=== PATIENT | male | born 1975 | race Caucasian/White ===

== ENCOUNTER 2019-04-18 08:55 | Emergency (ER) | payer OTHER, SELFPAY ==
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
[2019-04-18 08:58] VITALS: BP 122/96; PULSE 111; RESP 16; TEMP 36.7; O2SAT 99; BMI 28.5
[2019-04-18 09:07] VITALS: O2SAT 98
--- NOTE | 2019-04-18 09:13 | XR_ITS ---
WS: [id number] XR chest 1V portable [id number] REASON FOR EXAM: dyspnea/cough FINDINGS: Comparisons were made to September 14, 2015. The heart is normal. The lung dai are well aerated no pneumonia, pleural effusion, pulmonary edema, or mass effect. There is no hilar or apical abnormalities. No pneumothorax. XR/XR chest 1V portable [id number] IMPRESSION: Negative chest for active pathology.
--- NOTE | 2019-04-18 09:13 | ECG_ITS ---
Measurements Intervals [place] Rate: 107 P: 56 MI: 134 QRS: 64 QRSD: 70 T: 63 QT: 306 QTc: 409 SINUS TACHYCARDIA ABNORMAL RHYTHM ECG INTERPRETATION BASED ON A DEFAULT AGE OF 40 YEARS Compared to ECG 09/14/2015 08:34:21 Sinus rhythm no longer present T-wave abnormality no longer present Electronically Signed On 04-18-2019 19:05:09 EMERGENCY ROOM ORDERLY by Eduarda Ruby M.D. [id number] f
[2019-04-18] MEDS: ondansetron 2 mg/ML SDV 2 mL 4 MG IVP (09:21)
[2019-04-18] MEDS: sodium chlor 0.9% + KCl 20 mEq 20 MEQ/1,000 ML BAG 125 MEQ IV (09:21)
[2019-04-18] MEDS: morphine 4 mg/mL SDV 1 mL IVP (09:21)
[2019-04-18 09:25] LABS: Basophils # 0.1 10^3/uL (0.0-0.1); Basophils % 0.9 %; Eosinophils # 0.2 10^3/uL (0.0-0.8); Eosinophils % 2.7 %; Hematocrit 43.8 % (42.0-52.0); Hemoglobin 14.9 g/dL (11.7-16.6); Lymphocytes # 3.3 10^3/uL (0.8-4.8); Lymphocytes % 42.2 %; Mean Corpuscular Hemoglobin 35.2 pg (28.0-34.0); Mean Corpuscular Volume 103.5 fL (80-94); Mean Platelet Volume 8.5 fL (7.4-10.4); Monocytes # 0.5 10^3/uL (0.2-0.9); Monocytes % 6.9 %; Neutrophils # 3.7 10^3/uL (1.8-7.7); Nucleated Red Blood Cells % 0 %; Platelet Count 257 10^3/cmm (130-400); Red Blood Count 4.23 10^6/uL (4.1-5.3); Red Cell Distribution Width 11.9 % (12.1-15.1); White Blood Count 7.8 10^3/uL (4.0-10.0)
[2019-04-18 09:36] LABS: Alanine Aminotransferase 24 U/L (0-41); Alkaline Phosphatase 65 IU/L (40-130); Anion Gap 16.7 (5-19); Aspartate Amino Transferase 17 U/L (0-40); Blood Urea Nitrogen 9 mg/dL (6-20); Calcium 9.3 mg/dL (8.5-10.5); Carbon Dioxide 24 mmol/L (22-29); Chloride 96 mmol/L (98-107); Globulin 3.1 g/dL (1.3-4.6); Glomerular Filtration Rate 92.1 mL/min (90-130); Glucose 145 mg/dL (65-115); Potassium 4.7 mmol/L (3.5-5.1); Sodium 132 mmol/L (136-145); Total Bilirubin 0.2 mg/dL (0.15-1.2); Total Protein 7.1 g/dL (6.6-8.7)
[2019-04-18 09:38] LABS: Troponin(5th) Baseline 6 ng/mL (0-15)
--- NOTE | 2019-04-18 09:45 | CTR_ITS ---
PROCEDURE INFORMATION: Exam: CT Angiography Chest With Contrast Exam date and time: 04/18/2019 10:13 AM Age: 44 years old Clinical indication: Right-sided chest pain; Additional info: Chest pain x 3 days, tachycardia, dyspnea TECHNIQUE: Imaging protocol: Computed tomographic angiography of the chest with intravenous contrast. 3D rendering: MIP and/or 3D reconstructed images were created by the technologist. Total DLP: 628.53 mGy-cm Radiation optimization: All CT scans at this facility use at least one of these dose optimization techniques: automated exposure control; mA and/or kV adjustment per patient size (includes targeted exams where dose is matched to clinical indication); or iterative reconstruction. Contrast material: OMNI 350; Contrast volume: 95 ml; Contrast route: LT AC; COMPARISON: CR XR chest 1V portable [id number] 04/18/2019 9:25 AM FINDINGS: Pulmonary arteries: No pulmonary embolism. Aorta: No thoracic aortic aneurysm or dissection. Lungs: No pneumonia or pulmonary edema. There is mild bilateral paraseptal emphysema. Pleural space: No pleural effusion or pneumothorax. Heart: The heart is not enlarged. No pericardial effusion. There is coronary artery disease. Adrenals: There is a 2.5 cm right adrenal mass with attenuation measurements suggesting an adrenal adenoma. Lymph nodes: No pathologically enlarged lymph nodes. Bones/joints: No acute osseous abnormality. Soft tissues: Unremarkable. CT/CT angio chest PE protcl [id number] IMPRESSION: 1. No pulmonary embolism. 2. Mild emphysema. 3. Coronary artery disease. Radiation Dose CTDIVOL = (mGy): DLP = 628.53 (mGy-cm)
--- NOTE | 2019-04-18 11:13 | ECG_ITS ---
Measurements Intervals [place] Rate: 90 P: 57 VT: 136 QRS: 61 QRSD: 75 T: 66 QT: 340 QTc: 417 SINUS RHYTHM INTERPRETATION BASED ON A DEFAULT AGE OF 40 YEARS Compared to ECG 09/14/2015 08:34:21 T-wave abnormality no longer present Electronically Signed On 04-18-2019 19:07:47 BROACH GRINDER by Eduarda Ruby M.D. [id number] f
--- NOTE | 2019-04-18 11:18 | PC.NURSE ---
EKG performed and shown to ED physician.
[2019-04-18 11:25] LABS: Troponin 5 2HR Delta 0 ABS# (0-10)
[2019-04-18 12:01] VITALS: BP 126/87; PULSE 72; RESP 16; O2SAT 97
== END 2019-04-18 12:04 | disposition home or self-care (01) ==
PROVIDERS: Emergency Provider Family Medicine
DX: R07.89 Other chest pain (principal); F17.210 Nicotine dependence, cigarettes, uncomplicated; F43.10 Post-traumatic stress disorder, unspecified; Z87.820 Personal history of traumatic brain injury; R00.0 Tachycardia, unspecified; R94.31 Abnormal electrocardiogram [ECG] [EKG]; J43.9 Emphysema, unspecified; I25.10 Atherosclerotic heart disease of native coronary artery without angina pectoris
CPT/HCPCS: 12345; 36415; 71045; 71275; 80053; 84484; 85025; 93005; 96365; 96366; 96374; 96375; 99283; 99284; J2270; J2405; Q9967

== ENCOUNTER → 2019-05-19 10:30 | Outpatient (BNVA) | payer OTHER, SELFPAY | PROVIDERS: PCP Family Medicine; Referring Provider Family Medicine; Visit Provider Psychiatry & Neurology Neurology | DX: M54.12 Radiculopathy, cervical region (principal); F17.210 Nicotine dependence, cigarettes, uncomplicated | CPT/HCPCS: 95886; 95909 ==

== ENCOUNTER 2019-07-09 08:29 | Outpatient (CLI) | payer OTHER, SELFPAY ==
--- NOTE | 2019-07-09 08:58 | CT_ITS ---
WS: [id number] CT CERVICAL SPINE TECHNIQUE: Noncontrast CT of the cervical spine with coronal and sagittal reformatted images. CLINICAL INFORMATION: NECK PAIN COMPARISON: None. DLP: 1999.[address] scans at [facility] use at least one of these dose optimization techniques: automat ed exposure control; mA and/or kV adjustment per patient size (includes targeted exams where dose is matched to clinical indication); or iterative reconstruction. FINDINGS: Straightening of the normal cervical lordosis with mild spondylitic changes. Mild cervical curve conv ex right. Normal C1-C2 articulation. Normal C1 ring. C2-C3: Mild disc osteophytic ridging. Spinal canal and foramen are patent. C3-C4: Disc osteophyte complex with endplate ridging. Tiny central disc osteophyte protrusion. Mild r ight and no significant left foraminal narrowing. Mild facet arthropathy. Spinal canal is patent. C4-C5: Mild disc osteophyte complex with endplate ridging. Mild left and no significant right foramin al narrowing. Tiny central protrusion. Mild central canal stenosis. C5-C6: Disc osteophyte complex with endplate ridging. Mild bilateral bony foraminal narrowing. Mild f acet arthropathy. Mild central canal stenosis. C6-C7: Disc osteophyte complex with endplate ridging. Mild facet arthropathy. Mild bilateral bony for aminal narrowing right greater than left. Mild central canal stenosis. C7-T1: Images degraded at this level due to beam hardening artifact. Mild right and no significant le ft foraminal narrowing. Spinal canal is patent. Visualized posterior nasopharynx: Normal. Prevertebral soft tissues: Normal. CT/CT cervical spin wo con* [id number] IMPRESSION: 1. Straightening of the normal cervical lordosis. Mild cervical curve. 2. Mild spondylitic changes. 3. Small central disc osteophyte protrusions with mild central canal stenosis at C4-C5, C5-C6 and C6-C7. 4. Mild to moderate bony foraminal narrowing mainly due to osteophytic ridging and facet arthropathy more prominent at right C3-4, left C4-5, bilateral C5-C6 and right C6-C7.
== END 2019-07-09 08:30 | disposition home or self-care (01) ==
LOC: RADWPI 08:32
PROVIDERS: PCP Family Medicine; Visit Provider Family Medicine
DX: M54.2 Cervicalgia (principal); M25.78 Osteophyte, vertebrae; M48.02 Spinal stenosis, cervical region; M47.812 Spondylosis without myelopathy or radiculopathy, cervical region
CPT/HCPCS: 72125

== ENCOUNTER 2019-08-06 09:44 | Outpatient (CLI) | payer OTHER, SELFPAY ==
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
== END 2019-08-06 09:45 | disposition home or self-care (01) ==
LOC: RADWPI 09:47
PROVIDERS: Family Provider Family Medicine; PCP Family Medicine; Visit Provider Licensed Practical Nurse
DX: L90.5 Scar conditions and fibrosis of skin (principal)
CPT/HCPCS: 70360

== ENCOUNTER 2019-08-20 07:56 | Outpatient (CLI) | payer OTHER, SELFPAY ==
--- NOTE | 2019-08-20 08:15 | XR_ITS ---
WS: [id number] CERVICAL SPINE FLEXION EXTENSION TECHNIQUE: 3 views of the cervical spine: lateral neutral, flexion and extension views. CLINICAL INFORMATION: Neck pain COMPARISON: None. FINDINGS: Normal alignment on the neutral view. Normal alignment on the flexion views. Normal alignment in extension. Posterior elements are normal. No other significant findings. XR/XR cervical spine fl/ex [id number] IMPRESSION: No instability on flexion-extension.
--- NOTE | 2019-08-20 08:45 | MR_ITS ---
WS: [id number] MRI CERVICAL SPINE NONCONTRAST TECHNIQUE: Sagittal T1, T2 and STIR imaging. Axial T2, gradient, and fiesta imaging. Some images degr aded by patient motion. CLINICAL INFORMATION: M50.020 Cervical disc disorder with myelopathy, mid-cervi... COMPARISON: CT July 09, 2019 FINDINGS: Straightening of the normal cervical lordosis with mild spondylitic changes. No high-grade central ca nal stenosis. Cord signal is normal. Normal craniocervical junction. Normal C1-C2 articulation. C2-C3: Mild disc osteophytic ridging. Mild right and no significant left foraminal narrowing. Spinal canal is patent. C3-C4: Disc osteophyte complex with endplate ridging. Mild facet arthropathy. Spinal canal is patent. Foramen are patent. C4-C5: Mild disc osteophyte complex with endplate ridging. Mild bilateral foraminal narrowing. Spinal canal is patent. C5-C6: Shallow central disc osteophyte protrusion with mild central canal stenosis. Mild bilateral omega ny foraminal narrowing with mild to moderate facet arthropathy. C6-C7: Mild disc bulging with osteophytic ridging. Mild central canal stenosis.. Mild facet arthropat hy. Moderate left and mild right bony foraminal narrowing. C7-T1: No significant disc bulging. Moderate left and mild right bony foraminal narrowing. Mild facet arthropathy. Spinal canal is patent. MR/MR cervical spin wo con* [id number] IMPRESSION: 1. Straightening of the normal cervical lordosis. Cord signal is normal. No hi gh-grade central canal stenosis. 2. Mild central canal stenosis C5-C6 and C6-C7 due to shallow central disc bul ging. 3. Mild to moderate bony foraminal narrowing worse at left C4-C5, left C5-C6, and left C6-C7. 4. No significant changes since the prior CT.
== END 2019-08-20 07:57 | disposition home or self-care (01) ==
LOC: RADWPI 07:58
PROVIDERS: Family Provider Family Medicine; PCP Family Medicine; Visit Provider Licensed Practical Nurse
DX: M50.020 Cervical disc disorder with myelopathy, mid-cervical region, unspecified level (principal); M48.02 Spinal stenosis, cervical region; M50.223 Other cervical disc displacement at C6-C7 level
CPT/HCPCS: 72040; 72141

== ENCOUNTER 2020-09-03 19:31 | Emergency (ER) | payer OTHER, MEDICARE, SELFPAY ==
[2020-09-03 19:45] VITALS: BP 124/76; PULSE 93; RESP 18; TEMP 36.7; O2SAT 97; BMI 26.8
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
[2020-09-03] MEDS: HYDROcodone-acetaminophen 10-325 mg Tablet 1 TAB PO (20:28)
[2020-09-03] MEDS: cephALEXin 500 mg Capsule PO (20:28)
[2020-09-03 20:43] VITALS: RESP 16
--- NOTE | 2020-09-05 13:41 | DCPLANNER ---
manager of procurement had message to schedule a follow up appointment for patient with Wound Care for followup. manager of procurement called the Wound Care clinic, spoke with Carmen, gave clinic patients information. A follow up appointment was scheduled for Sunday, September 06, 2020 at 1:30 with Rhea. manager of procurement called patient and gave patient the appointment information. Patient has [facility], emailed patients information to [facility] with [facility] for the authorization process could be started.
--- NOTE | 2020-09-15 11:47 | DCPLANNER ---
Patient had a follow up appointment scheduled for 09.07.20 at Wound Care - patient did attend appointment.
== END 2020-09-03 20:45 | disposition home or self-care (01) ==
PROVIDERS: Emergency Provider Nurse Practitioner Family
DX: S61.201A Unspecified open wound of left index finger without damage to nail, initial encounter (principal); F17.200 Nicotine dependence, unspecified, uncomplicated; X58.XXXA Exposure to other specified factors, initial encounter
CPT/HCPCS: 99283; A6446

== ENCOUNTER 2020-09-06 13:23 | Outpatient (CLI) | payer MEDICARE, SELFPAY | END 2020-09-06 13:24 | disposition home or self-care (01) | LOC: WOUND 13:25 | PROVIDERS: Visit Provider Nurse Practitioner Family | DX: S61.211A Laceration without foreign body of left index finger without damage to nail, initial encounter (principal); X58.XXXA Exposure to other specified factors, initial encounter | CPT/HCPCS: 99214 ==

== ENCOUNTER 2023-04-24 08:48 | Emergency (ER) | payer OTHER, SELFPAY ==
[2023-04-24 09:04] VITALS: BP 142/91; PULSE 87; TEMP 36.4; O2SAT 97; BMI 27.8
--- NOTE | 2023-04-24 09:04 | ED_ITS ---
HPI - Abdominal Pain 2 General: Chief Complaint: GI Bleed Stated Complaint: abd pain, blood in stool Time Seen by Provider: 04/24/23 09:00 Source: patient Mode of arrival: ambulatory History of Present Illness: 48-year-old male presents emergency room complaining of right upper quadrant abdominal pain and bloody stools. Has had black and tarry stools for the last few days. He noticed some increased bright red blood in his stool this morning. Patient is a former heavy drinker and stopped in November 2022. He is not on any anticoagulants. He did have a colonoscopy approximately 1 month ago some polyps removed but no other significant findings he been doing well until just recently. No history of any inflammatory bowel disease or abdominal surgeries. MD elicited complaint: abdominal pain Associated Symptoms: Reports hematochezia; Denies chills, dysuria and fever(s) Review of Systems 2 Const: Denies: fever(s) or chills Card: Denies: chest pain Resp: Denies: dyspnea GI: Reports: abdominal pain and hematochezia : Denies: dysuria, urinary frequency or urinary urgency Musc: Denies: neck pain or back pain Skin/Breast: Denies: rash PFS ED 2 PFSH: Medical History (Updated 04/24/23 @ 11:09 by Issa Thomas DO) Cervical disc disorder with myelopathy of mid-cervical region Scar PTSD (post-traumatic stress disorder) TBI (traumatic brain injury) Surgical History War injury due to shrapnel left anterior cervical scar. He reports shrapnel removed in [place]. Family History Grandfather Parkinson disease Social History Smoking and tobacco/nicotine status: current every day tobacco/nicotine user Alcohol intake: current Substance/Drug Use: never Household members: significant other Marital status: Single service: Yes Current occupational status: disabled Physical Exam 2 Const: COMMON NORMALS: no acute distress GENERAL APPEARANCE: cooperative and comfortable ORIENTATION/CONSCIOUSNESS: Yes awake, Yes oriented to person, Yes oriented to place and Yes oriented to time HENMT: COMMON NORMALS: normocephalic, atraumatic and hearing grossly normal bilaterally HEAD & SCALP: normocephalic and atraumatic Resp: COMMON NORMALS: normal respiratory effort, No retractions, No use of accessory muscles and clear to auscultation bilaterally AUSCULTATION: clear to auscultation bilaterally Cardio: COMMON NORMALS: regular rate, regular rhythm and No murmurs present (Cardio) RATE: regular rate RHYTHM: regular rhythm GI: COMMON NORMALS: Soft to palpation and No hepatosplenomegaly present A USCULTATION: Yes normoactive bowel sounds PALPATION: Yes Soft to palpation, No Tenderness to palpation present (GI), No Guarding due to palpation present (GI) and Yes No hepatosplenomegaly present Extremity: COMMON NORMALS: normal to inspection, capillary refill normal, no clubbing, cyanosis or edema, no calf tenderness and no pedal edema Neuro: SENSORIUM/ORIENTATION: Yes oriented to person, Yes oriented to place and Yes oriented to time Skin: COMMON NORMALS: no rashes or lesions noted GENERAL SKIN EXAM: no rashes or lesions noted Course 2 Vital Signs: Vital signs: Vital Signs Temperature 97.6 F 04/24/23 09:04 Pulse Rate 87 04/24/23 09:04 Blood Pressure 142/91 04/24/23 09:04 Pulse Oximetry 97 04/24/23 09:04 Oxygen Delivery Me thod Room Air 04/24/23 09:04 MDM - Abdominal Pain Medical Decision Making Mild enteritis to the ascending colon consistent with the findings on his exam. He does have some referred pain into his back urine is clear CT is otherwise negative. Did do a visual exam of his rectal area there is some mild irritation at 6 o'clock position but no active bright red blood. His hemoglobin is good his BUN is normal. Recommend clear liquid diet for next 24 to 48 hours and advance as tolerated 7-day course of Cipro and Flagyl ondansetron hydrocodone as needed. Return if has worsening or change symptoms. Reviewed findings and plan with patient Medical Records I reviewed the patient's medical records. Lab Data I reviewed the patient's lab results. 04/24/23 09:07 04/24/23 09:07 Labs/Radiology: Laboratory Results WBC 7.33 10^3/uL (3.29-11.43) 04/24/23 09:07 RBC 4.86 10^6/uL (3.85-5.65) 04/24/23 09:07 Hgb 16.90 g/dL (11.27-16.99) 04/24/23 09:07 Hct 49.0 % (37-53) 04/24/23 09:07 MCV 100.8 fl (82-101) 04/24/23 09:07 MCH 34.8 pg (27-33) H 04/24/23 09:07 MCHC 34.5 g/dL (30-55) 04/24/23 09:07 RDW 11.9 % (12.1-15.1) L 04/24/23 09:07 Plt Count 191 10^3/cmm (157-399) 04/24/23 09:07 MPV 9.1 fL (7.4-10.4) 04/24/23 09:07 Neut % (Auto) 45.7 % 04/24/23 09:07 Lymph % (Auto) 47.3 % 04/24/23 09:07 [place] % (Auto) 4.2 % 04/24/23 09:07 Eos % (Auto) 2.0 % 04/24/23 09:07 Baso % (Auto) 0.7 % 04/24/23 09:07 Neut # (Auto) 3.34 10^3/uL (1.8-7.7) 04/24/23 09:07 Lymph # (Auto) 3.5 10^3/uL (0.8-4.8) 04/24/23 09:07 [place] # (Auto) 0.3 10^3/uL (0.2-0.9) 04/24/23 09:07 Eos # (Auto) 0.2 10^3/uL (0.0-0.8) 04/24/23 09:07 Baso # (Auto) 0.1 10^3/uL (0.0-0.1) 04/24/23 09:07 Nucleated RBC % (auto) 0 % 04/24/23 09:07 Nucleated RBCs # 0.0 /100WBC 04/24/23 09:07 Sodium 138 mmol/L (136-145) 04/24/23 09:07 Potassium 4.4 mmol/L (3.5-5.1) 04/24/23 09:07 Chloride 104 mmol/L (98-107) 04/24/23 09:07 Carbon Dioxide 26 mmol/L (22-29) 04/24/23 09:07 Anion Gap 12.4 (5-19) 04/24/23 09:07 BUN 18 mg/dL (6-20) 04/24/23 09:07 Creatinine 0.8 mg/dL (0.7-1.2) 04/24/23 09:07 GFR Calculation 103.6 mL/min (90-130) 04/24/23 09:07 Glucose 120 mg/dL (65-115) H 04/24/23 09:07 Calculated Osmolality 289 mOsm/kg (285-295) 04/24/23 09:07 Calcium 9.2 mg/dL (8.5-10.5) 04/24/23 09:07 Total Bilirubin 0.2 mg/dL (0.15-1.2) 04/24/23 09:07 AST 13 U/L (0-40) 04/24/23 09:07 ALT 14 U/L (0-41) 04/24/23 09:07 Alkaline Phosphatase 75 U/L (40-130) 04/24/23 09:07 Total Protein 6.5 g/dL (6.6-8.7) L 04/24/23 09:07 Albumin 4.2 g/dL (3.5-5.2) 04/24/23 09:07 Globulin 2.3 g/dL (1.3-4.6) 04/24/23 09:07 Urine Color Yellow (Yellow) 04/24/23 09:45 Urine Appearance Clear (CLEAR) 04/24/23 09:45 Urine pH 5 (5-7) 04/24/23 09:45 Ur Specific [place] 1.015 (1.005-1.030) 04/24/23 09:45 Urine Protein Neg (Negative) 04/24/23 09:45 Urine Glucose (UA) Norm (Normal) 04/24/23 09:45 Urine Ketones Negative (Negative) 04/24/23 09:45 Urine Blood Neg (Negative) 04/24/23 09:45 Urine Nitrate Negative (Negative) 04/24/23 09:45 Urine Bilirubin Neg (Negative) 04/24/23 09:45 Urine Urobilinogen Norm mg/dL (Negative) 04/24/23 09:45 Ur Leukocyte Esterase Negative (Negative) 04/24/23 09:45 All radiology interpretation(s) finalized by discharge Discharge Plan Discharge Patient Disposition: Home Clinical Impression: Enteritis Condition: Stable Prescriptions: New ciprofloxacin HCl [Cipro] 500 mg tablet 500 mg PO BID Qty: 14 0RF metronidazole 500 mg tablet 500 mg PO BID 7 Days Qty: 14 0RF hydrocodone-acetaminophen 5-325 mg tablet 1 tab PO Q6H PRN (Reason: pain) Qty: 10 0RF ondansetron HCl 4 mg tablet 4 mg PO Q6H PRN (Reason: nausea and vomiting) Qty: 20 0RF No Action quetiapine 100 mg Tablet 50 mg PO QPM sildenafil 100 mg Tablet See Rx Instructions .ROUTE .COMPLEX Rx Instructions: 100 mg TAKE ONE TAB PO EVERY WEEK PRN FOR ERECTILE DYSFUNCTION prazosin 2 mg Capsule 4 mg PO BEDTIME rosuvastatin 10 mg Tablet 5 mg PO QPM bupropion HCl 150 mg tablet extended release 24 hr 150 mg PO DAILY cholecalciferol (vitamin D3) 50 mcg (2,000 unit) Tablet 100 mcg PO QPM Discharge Orders: Discharge ED (Routine); Ordered 04/24/23 Ordered By: Issa Thomas Discharge Diet: Clear Liquid Discharge Activity: Increase activity as tolerated Patient Instructions: Opioid Safety, Pain Management Activity Restrictions/Additional Instructions: Thank you for choosing [facility] for your healthcare needs today. Please realize this is an emergency room and that we are providing you with a medical screening exam and this may not be complete and all inclusive of all the testing and or work up that you may need to determine your ailment or severity of your illness. It is very important that you follow up as instructed or that you return to the Emergency Department should you have concerns or if your condition changes or worsens in any way. You are seen today for abdominal pain and complaints of rectal bleeding. On the CT there is a small area of inflammation on the ascending colon. This is likely the cause of the pain and some of the bloody stool. Recommend to do a short course of Cipro and Flagyl as well as ondansetron as needed for nausea. Clear liquid diet for the next 48 hours and advance as tolerated Coding Level of Care Code ED [employer] Supervisor for Jade Castañeda
[2023-04-24 09:17] LABS: Basophils # 0.1 10^3/uL (0.0-0.1); Basophils % 0.7 %; Eosinophils # 0.2 10^3/uL (0.0-0.8); Lymphocytes # 3.5 10^3/uL (0.8-4.8); Lymphocytes % 47.3 %; Mean Corpuscular HGB Conc 34.5 g/dL (30-55); Mean Corpuscular Hemoglobin 34.8 pg (27-33); Mean Corpuscular Volume 100.8 fl (82-101); Mean Platelet Volume 9.1 fL (7.4-10.4); Monocytes # 0.3 10^3/uL (0.2-0.9); Monocytes % 4.2 %; Neutrophils # 3.34 10^3/uL (1.8-7.7); Neutrophils % 45.7 %; Nucleated Red Blood Cells % 0 %; Platelet Count 191 10^3/cmm (157-399); Red Blood Count 4.86 10^6/uL (3.85-5.65); Red Cell Distribution Width 11.9 % (12.1-15.1); White Blood Count 7.33 10^3/uL (3.29-11.43)
--- NOTE | 2023-04-24 09:35 | CT_ITS ---
WS: [id number] CT ABDOMEN AND PELVIS WITH CONTRAST HISTORY: abd pain, rectal bleeding. TECHNIQUE: Imaging performed of the abdomen and pelvis with IV contrast. Single phase imaging of the abdomen. Coronal and sagittal reformats are submitted. All CT scans at [facility] use at [facility] st one of these dose optimization techniques: automated exposure control; mA and/or kV adjustment per patient size (includes targeted exams where dose is matched to clinical indication); or iterative re construction. IV CONTRAST: Omnipaque 350; 100 mL IV. Oral contrast: No DLP: 732.06 mGy.cm COMPARISON: CT chest 04/18/2019 Lower thorax: Lung bases are clear. Heart is normal size. Small hiatal hernia. Liver/biliary system: Normal size with no intrahepatic dilatation. Gallbladder: Normal. No gallstones or wall thickening. No pericholecystic fluid. Pancreas: Normal size pancreas and pancreatic duct. No adjacent inflammation. Spleen: Normal size spleen. No mass or infarct. Adrenal glands: RIGHT adrenal well-circumscribed low-attenuation mass 2.1 x 1.8 cm. No change since . Very slight thickening and nodularity LEFT adrenal gland measuring 1.2 x 0.9 cm. Too small t o characterize. Right kidney: Normal. Left kidney: Normal. Aorta: Mild atherosclerosis with no aneurysm. Lymphadenopathy: None. Free fluid: None. GI tract: Normally distended stomach. No small bowel obstruction. Normal appendix. Minimal diverticul ar disease. No areas of enhancement or active contrast extravasation to suggest active bleeding. Foca l hyperemia and wall thickening along the medial ascending colon near the terminal ileum with very sl ight increased attenuation as compared to the adjacent mucosa. This could potentially represent an ar ea of acute enteritis and can be further evaluated by colonoscopy. Abdominal wall: Fat containing umbilical hernia. Pelvis: No free fluid or adenopathy within the pelvis. Bones: Mild degenerative disc disease at L5-S1. LEFT femoral a head osteonecrosis. Suspect early schuster ges of very superficial osteonecrosis involving the RIGHT femoral head. IMPRESSION: 1. No GI tract obstruction or active hemorrhage. 2. Focal area of increased attenuation and hyperemia along the medial ascending colon which may be p art of the terminal ileum. Consider a mild acute enteritis. 3. No significant diverticular disease and no acute diverticulitis. 4. No free fluid in the pelvis. 5. LEFT femoral head osteonecrosis with developing tiny focus of osteonecrosis RIGHT femoral head. N o fragmentation or collapse. 6. Normal appendix. 7. Bilateral adrenal nodules. RIGHT adrenal nodule is the largest and stable since 04/18/2019 most con sistent with an adenoma. The LEFT nodule is too small to characterize.
[2023-04-24 09:36] LABS: Alanine Aminotransferase 14 U/L (0-41); Albumin Level 4.2 g/dL (3.5-5.2); Alkaline Phosphatase 75 U/L (40-130); Anion Gap 12.4 (5-19); Aspartate Amino Transferase 13 U/L (0-40); Blood Urea Nitrogen 18 mg/dL (6-20); Calcium 9.2 mg/dL (8.5-10.5); Carbon Dioxide 26 mmol/L (22-29); Chloride 104 mmol/L (98-107); Creatinine Clr Calc Pharmacy 135.2285; Globulin 2.3 g/dL (1.3-4.6); Glomerular Filtration Rate 103.6 mL/min (90-130); Glucose 120 mg/dL (65-115); Osmolality Calculated 289 mOsm/kg (285-295); Potassium 4.4 mmol/L (3.5-5.1); Sodium 138 mmol/L (136-145); Total Bilirubin 0.2 mg/dL (0.15-1.2); Total Protein 6.5 g/dL (6.6-8.7)
[2023-04-24] MEDS: iohexol 350 mg/mL 500 mL Btl (per mL) IV (09:56)
[2023-04-24 10:08] LABS: Add Urine Microscopic? NO; Charge for UA Resulting for Rev
[2023-04-24 10:10] LABS: Bilirubin Urine Neg (Negative); Blood Urine Neg (Negative); Glucose Urine UA Norm (Normal); Ketones Urine Negative (Negative); Leukocyte Esterase Urine Negative (Negative); Nitrate Urine Negative (Negative); Protein Urine Neg (Negative); Specific Gravity, Urine 1.015 (1.005-1.030); Urine Appearance Clear (CLEAR); Urine Color Yellow (Yellow); Urobilinogen Urine Norm (Negative); pH Urine 5 (5-7)
[2023-04-24 11:08] VITALS: BP 125/77; PULSE 72; O2SAT 98
== END 2023-04-24 11:28 | disposition home or self-care (01) ==
PROVIDERS: Emergency Provider Family Medicine; PCP Family Medicine
DX: K52.9 Noninfective gastroenteritis and colitis, unspecified (principal); Z72.0 Tobacco use
CPT/HCPCS: 36415; 74177; 80053; 81003; 85025; 99285; Q9967

== ENCOUNTER 2023-09-13 08:12 | Outpatient (CLI) | payer OTHER, SELFPAY ==
--- NOTE | 2023-09-13 08:15 | US_ITS ---
WS: [id number] Bilateral renal ultrasound, 09/13/2023 Clinical Data: ABN XRAY SHOWED PROMINENT L KIDNEY VS SOLID OR CYSTIC MASS Comparison: None. Findings: The right kidney measures 12.1 cm x 5.1 cm x 5.1 cm and the left kidney is 12.0 cm x 5.4 cm x 5.4 cm. There are no cysts, masses or hydronephrosis. The renal cortical margin is normal. No renal calculi are seen. The abdominal aorta and inferior vena cava show no vascular abnormalities. The bladder was scanned and was not remarkable. US/US renal BI* [id number] Impression: Negative bilateral renal ultrasound.
== END 2023-09-13 08:13 | disposition home or self-care (01) ==
LOC: RAD 08:13
PROVIDERS: PCP Family Medicine; Visit Provider Family Medicine
DX: N28.89 Other specified disorders of kidney and ureter (principal)
CPT/HCPCS: 76770

== ENCOUNTER 2024-04-13 09:18 | Outpatient (CLI) | payer OTHER, SELFPAY ==
--- NOTE | 2024-04-13 09:25 | US_ITS ---
WS: [id number] RIGHT UPPER QUADRANT ULTRASOUND HISTORY: RUQ PAIN X A YEAR COMPARISON: CT 04/24/2023 Liver: 14.5 cm in length. Normal size liver and echogenicity. No bile duct dilatation or mass. Portal Vein: Normal hepatopetal flow with monophasic waveform. Gallbladder: Gallbladder is slightly contracted. There is mild diffuse gallbladder wall prominence but the gallbladder wall measurement is normal. No pericholecystic fluid. CBD: 0.3 cm Pancreas: Obscured by bowel gas. Right kidney: 11.4 cm in length. Normal size and echogenicity. No hydronephrosis or mass. Aorta and IVC: Unremarkable abdominal aorta and IVC. No ascites. US/US abdomen limited [id number] IMPRESSION: 1. No cholelithiasis. 2. Gallbladder is slightly contracted. No pericholecystic fluid. May be due to nonfasting state versus chronic cholecystitis.
== END 2024-04-13 09:19 | disposition home or self-care (01) ==
PROVIDERS: PCP Family Medicine; Visit Provider Family Medicine
DX: R10.11 Right upper quadrant pain (principal); R93.3 Abnormal findings on diagnostic imaging of other parts of digestive tract
CPT/HCPCS: 76705

== ENCOUNTER 2024-05-05 08:04 | Outpatient (CLI) | payer OTHER, SELFPAY ==
--- NOTE | 2024-05-05 08:16 | NM_ITS ---
WS: [id number] NUCLEAR MEDICINE HIDA SCAN WITH GALLBLADDER EJECTION FRACTION HISTORY: RUQ PAIN COMPARISON: Ultrasound 04/13/2024 TECHNIQUE: The patient was intravenously injected with 7.7 mCi of TC99m Mebrofenin. Immediate imaging over the right upper quadrant was followed by 5 minute image and additional images for a total of 60 minutes. Normal uptake of radiotracer throughout the liver. Activity identified in the gallbladder at 15 minutes and well distended by 60 minutes. Activity in the proximal small bowel was seen by 30 minutes. Good washout of the radiotracer from the liver by 60 minutes. The patient then drank 8 ounces of Ensure Plus. Ejection fraction at 60 minutes was 65%. Normal GB ejection fraction is 35-75%. Post fatty meal symptoms: None. NM/NM hepatobiliary w phar* [id number] IMPRESSION: 1. Normal HIDA scan. 2. Normal gallbladder ejection fraction.
== END 2024-05-05 08:05 | disposition home or self-care (01) ==
PROVIDERS: PCP Family Medicine; Visit Provider Family Medicine
DX: R10.11 Right upper quadrant pain (principal)
CPT/HCPCS: 78227; A9537